=== PATIENT | female | born 2000 | race Hispanic/Latino ===

== ENCOUNTER 2018-01-14 07:16 | Day surgery (SDC) | payer MEDICAID ==
[2018-01-14] MEDS ORDERED: ATROPINE 0.1% (CARDIAC) ONE (08:59)
[2018-01-14] MEDS ORDERED: NITROSTAT SL ONE (08:59)
[2018-01-14] MEDS ORDERED: NACL 0.9% 500 ML 500 ML IV SCH (09:00)
--- NOTE | 2018-01-14 10:01 | Short Stay Summary ---
Short Stay Documentation Date of service: 01/14/18 - History H&P: obtained from office - Allergies and Medications Current Medications: Allergies No Known Allergies Allergy (Unverified 01/14/18 07:21) Active Medications Sodium Chloride (Nacl 0.9% 500 Ml) 500 mls @ 50 mls/hr IV DIRECT JUAN DIEGO - Physical exam General appearance: no acute distress Integumentary: no rash HEENT: Atraumatic Lungs: Clear to auscultation Breasts: deferred Heart: Regular rate Gastrointestinal: normal Female Genitourinary: deferred Rectal Exam: deferred Extremities: no ischemia Neurological: Normal gait - Brief post op/procedure progress note Date of procedure: 01/14/18 Pre-op diagnosis: Syncope Post-op diagnosis: same Procedure: TTT Anesthesia: none Findings: See report Surgeon: DEEPAK RATLIFF Estimated blood loss: none Pathology: none Condition: stable - Hospital course Hospital course: Uneventful - Disposition Condition at discharge: Good Disposition: DC-01 TO HOME OR SELFCARE Short Stay Discharge Plan Activity: other (Avoid rapid changes in position, avoid prolonged standing) Diet: regular (liberal fluid and salt intake) Follow up with: GILDA BECKWITH MD [Primary Care Provider] - 7 Days
--- NOTE | 2018-01-14 10:13 | Procedure Note ---
TILT TABLE TEST ORDERING PHYSICIAN: Rosanna Newby MD INDICATION FOR PROCEDURE: Syncope. DESCRIPTION OF PROCEDURE: After obtaining written consent, the patient was brought to the organic lab worker area. The patient was placed and secured on the tilt table test. Supine blood pressure was 112/69, supine heart rate was 93 beats per minute. The patient was tilted to 85 degrees from horizontal. Blood pressure was 113/69 with a heart rate of 80 beats per minute after tilting. The patient was kept in this upright position for approximately 9 minutes. At that time, she started complaining of feeling dizzy, not able to see or hear as well as feeling hypersensitive. She did lose muscle tone; however, she did not lose consciousness. Her lowest recorded blood pressure was 97/57. She developed sinus bradycardia with a heart rate as low as 49 beats per minute. The patient requested to be tilted back to horizontal. She was tilted back to horizontal. Blood pressure recovered to 109/68 and heart rate recovered to 58 beats per minute. IMPRESSION: This is a positive tilt table test with evidence of a cardioinhibitory response to upright position. No nitroglycerin was given. RECOMMENDATION: Behavioral changes, liberal salt and fluid intake. Follow up with referring usability architect. JOB# [id number] LORNE/DEO
[2018-01-14 10:41] VITALS: BP 106/54
== END 2018-01-14 10:45 | disposition home or self-care (01) ==
LOC: CATHLABREC 07:16
PROVIDERS: ATTEND Internal Medicine
DX: R94.39 Abnormal result of other cardiovascular function study (principal); R55 Syncope and collapse; J45.909 Unspecified asthma, uncomplicated; F32.9 Major depressive disorder, single episode, unspecified; F41.9 Anxiety disorder, unspecified
CPT/HCPCS: 93660; J7040; J0461